=== PATIENT | male | born 1975 | race Caucasian/White ===

== ENCOUNTER 2017-04-19 07:16 | Emergency (ER) | payer OTHER ==
[2017-04-19] MEDS: KETOROLAC 15 MG INJ IM (08:31)
== END 2017-04-19 08:41 | disposition home or self-care (01) ==
LOC: FTE 07:16
DX: M79.604 Pain in right leg (principal); M79.605 Pain in left leg; G47.00 Insomnia, unspecified; F17.210 Nicotine dependence, cigarettes, uncomplicated
CPT/HCPCS: 96372; 99284-25

== ENCOUNTER 2017-05-19 09:57 | Emergency (ER) | payer OTHER ==
[2017-05-19] MEDS ORDERED: SOD CHLORIDE 0.9% 1,000 ML IV (10:34)
[2017-05-19 13:32] LABS: ADD MAN DIFF? NO
[2017-05-19 13:33] LABS: WHITE BLOOD COUNT 5.9 10^3/ul (4.8-10.8)
[2017-05-19 13:33] LABS: ABNORMAL IP MESSAGE 1; BASOPHILS % 0.7 % (0.0-2.0); EOSINOPHILS # 0.2 10^3/ul (0.0-0.5); EOSINOPHILS % 3.9 % (0.0-7.0); HEMATOCRIT 35.5 % (42.0-52.0); HEMOGLOBIN 12.5 g/dl (14.0-18.0); LYMPHOCYTES # 1.7 10^3/ul (0.8-2.9); LYMPHOCYTES % 28.8 % (15.0-51.0); MEAN CORPUSCULAR HEMOGLOBIN 35.4 pg (29.0-33.0); MEAN CORPUSCULAR HGB CONC 35.2 g/dl (32.0-37.0); MEAN CORPUSCULAR VOLUME 100.6 fl (82.0-101.0); MEAN PLATELET VOLUME 10.8 fl (7.4-10.4); MONOCYTE # 0.6 10^3/ul (0.3-0.9); MONOCYTES % 9.9 % (0.0-11.0); NEUTROPHIL # 3.3 10^3/ul (1.6-7.5); NEUTROPHILS % 56.4 % (39.0-77.0); PLATELET COUNT 61 10^3/UL (140-415); POSITIVE DIFF @See below; RED BLOOD COUNT 3.53 10^6/ul (4.70-6.10); RED CELL DISTRIBUTION WIDTH 12.8 % (11.5-14.5)
[2017-05-19 13:53] LABS: ALANINE AMINOTRANSFERASE 37 IU/L (13-69); ALBUMIN 3.5 g/dl (3.3-4.9); ALBUMIN/GLOBULIN RATIO 0.92; ALKALINE PHOSPHATASE 169 IU/L (42-121); ANION GAP 14 (8-16); ASPARTATE AMINO TRANSFERASE 79 IU/L (15-46); BILIRUBIN,INDIRECT 1.7 mg/dl (0-1.1); BILIRUBIN,TOTAL 1.7 mg/dl (0.2-1.3); BLOOD UREA NITROGEN 9 mg/dl (7-20); CALCIUM 8.6 mg/dl (8.4-10.2); CARBON DIOXIDE 26 mmol/L (21-31); CHLORIDE 111 mmol/L (97-110); CREATININE 0.52 mg/dl (0.61-1.24); GLUCOSE 105 mg/dl (70-220); POTASSIUM 4.4 mmol/L (3.5-5.1); SODIUM 147 mmol/L (135-144); TOTAL PROTEIN 7.3 g/dl (6.1-8.1)
== END 2017-05-19 16:00 | disposition home or self-care (01) ==
LOC: E/R 09:57
DX: F10.920 Alcohol use, unspecified with intoxication, uncomplicated (principal); E87.0 Hyperosmolality and hypernatremia; R51 Headache; Z87.891 Personal history of nicotine dependence
CPT/HCPCS: 70450; 80053; 80306; 85025; 99284-25

== ENCOUNTER 2017-08-11 11:19 | Emergency (ER) | payer OTHER | END 2017-08-11 15:05 | disposition home or self-care (01) | LOC: E/R 11:19 | DX: F10.920 Alcohol use, unspecified with intoxication, uncomplicated (principal); R41.82 Altered mental status, unspecified | CPT/HCPCS: 70450; 82962; 99284-25 ==

== ENCOUNTER 2017-10-23 08:28 | Emergency (ER) | payer OTHER ==
[2017-10-23] MEDS: IBUPROFEN 800 MG TAB PO (08:33)
== END 2017-10-23 12:28 | disposition home or self-care (01) ==
LOC: E/R 08:28
DX: M79.605 Pain in left leg (principal); F10.920 Alcohol use, unspecified with intoxication, uncomplicated
CPT/HCPCS: 81025; 99283

== ENCOUNTER 2018-02-06 15:14 | Inpatient (IN) | payer OTHER ==
[2018-02-06 16:37] LABS: ADD MAN DIFF? NO
[2018-02-06 16:41] LABS: ABNORMAL IP MESSAGE 1; BASOPHIL # 0.1 10^3/ul (0.0-0.1); BASOPHILS % 0.5 % (0.0-2.0); EOSINOPHILS # 0.2 10^3/ul (0.0-0.5); EOSINOPHILS % 2.1 % (0.0-7.0); HEMATOCRIT 33.5 % (42.0-52.0); HEMOGLOBIN 11.8 g/dl (14.0-18.0); LYMPHOCYTES % 9.8 % (15.0-51.0); MEAN CORPUSCULAR HEMOGLOBIN 38.6 pg (29.0-33.0); MEAN CORPUSCULAR HGB CONC 35.2 g/dl (32.0-37.0); MEAN CORPUSCULAR VOLUME 109.5 fl (82.0-101.0); MEAN PLATELET VOLUME 11.3 fl (7.4-10.4); MONOCYTE # 0.9 10^3/ul (0.3-0.9); MONOCYTES % 8.9 % (0.0-11.0); NEUTROPHIL # 7.8 10^3/ul (1.6-7.5); NEUTROPHILS % 77.3 % (39.0-77.0); PLATELET COUNT 58 10^3/UL (140-415); POSITIVE DIFF @See below; RED BLOOD COUNT 3.06 10^6/ul (4.70-6.10); RED CELL DISTRIBUTION WIDTH 13.2 % (11.5-14.5)
[2018-02-06 16:41] LABS: WHITE BLOOD COUNT 10.1 10^3/ul (4.8-10.8)
[2018-02-06 16:59] LABS: ALANINE AMINOTRANSFERASE 22 IU/L (13-69); ALBUMIN 2.9 g/dl (3.3-4.9); ALKALINE PHOSPHATASE 308 IU/L (42-121); ANION GAP 8 (5-13); ASPARTATE AMINO TRANSFERASE 103 IU/L (15-46); BILIRUBIN,INDIRECT 3.6 mg/dl (0-1.1); BILIRUBIN,TOTAL 17.7 mg/dl (0.2-1.3); BLOOD UREA NITROGEN 6 mg/dl (7-20); CALCIUM 7.9 mg/dl (8.4-10.2); CARBON DIOXIDE 20 mmol/L (21-31); CHLORIDE 112 mmol/L (97-110); CREATININE 0.59 mg/dl (0.61-1.24); Estimated GFR > 60 mL/min (>60); GLUCOSE 117 mg/dl (70-220); LIPASE 122 U/L (23-300); SODIUM 140 mmol/L (135-144); TOTAL PROTEIN 8.7 g/dl (6.1-8.1)
[2018-02-06 17:01] LABS: POTASSIUM 2.7 mmol/L (3.5-5.1)
[2018-02-06 17:56] LABS: AMMONIA 97 umol/l (9-30)
[2018-02-06] MEDS: POTASSIUM CHLORIDE 100 ML IVPB ×2 (18:05→23:00)
[2018-02-06] MEDS: POTASSIUM CHLORIDE (SR) 20 MEQ TAB PO (18:06)
[2018-02-06 18:10] LABS: ADD UMIC NO; UR ASCORBIC ACID NEGATIVE (NEGATIVE); UR BILIRUBIN (Dip) 2+ mg/dL (NEGATIVE); UR BLOOD (Dip) NEGATIVE (NEGATIVE); UR CLARITY CLEAR (CLEAR); UR COLOR AMBER (YELLOW); UR GLUCOSE (Dip) NEGATIVE (NEGATIVE); UR KETONES (Dip) NEGATIVE (NEGATIVE); UR LEUKOCYTE ESTERASE (Dip) NEGATIVE Leu/ul (NEGATIVE); UR NITRITE (Dip) NEGATIVE (NEGATIVE); UR SPECIFIC GRAVITY (Dip) 1.003 (1.003-1.030); UR TOTAL PROTEIN (Dip) NEGATIVE (NEGATIVE); UR UROBILINOGEN (Dip) 1+ mg/dL (NEGATIVE)
[2018-02-06] MEDS ORDERED: ONDANSETRON 4 MG INJ IV (20:00)
[2018-02-06] MEDS ORDERED: ACETAMINOPHEN 325 MG TAB PO (20:00)
[2018-02-06] MEDS: MAGNESIUM SULFATE 2 GM/50 ML 50 ML IVPB (20:14)
[2018-02-06] MEDS ORDERED: NACL 0.9% 3 ML SYG IV (21:00)
[2018-02-06] MEDS: FAMOTIDINE 20 MG INJ IV (23:45)
[2018-02-06] MEDS: LACTULOSE 30ML CUP PO (23:45)
[2018-02-06] MEDS: FOLIC ACID 1 MG TAB PO (23:45)
[2018-02-06] MEDS: THIAMINE 100 MG TAB PO (23:45)
[2018-02-06] MEDS: CHLORDIAZEPOXIDE 25 MG CAP PO (23:45)
[2018-02-07] MEDS: HEPARIN 5,000 UNIT/0.5 ML VIAL SC (00:32)
[2018-02-07] MEDS: MULTIVITAMINS THERAPEUTIC TAB PO ×2 (00:33→09:00)
[2018-02-07] MEDS: POTASSIUM CHLORIDE 20 MEQ in SOD CHLORIDE 0.9% 100 ML IV ×2 (00:34→02:55)
[2018-02-07] MEDS: POTASSIUM CHLORIDE 100 ML IVPB (02:58)
[2018-02-07] MEDS: LACTULOSE 30ML CUP PO ×3 (06:16→17:01)
[2018-02-07 06:55] LABS: ADD MAN DIFF? NO
[2018-02-07 06:59] LABS: WHITE BLOOD COUNT 6.9 10^3/ul (4.8-10.8)
[2018-02-07 06:59] LABS: ABNORMAL IP MESSAGE 1; BASOPHILS % 0.6 % (0.0-2.0); EOSINOPHILS # 0.2 10^3/ul (0.0-0.5); EOSINOPHILS % 2.2 % (0.0-7.0); HEMATOCRIT 33.3 % (42.0-52.0); HEMOGLOBIN 11.4 g/dl (14.0-18.0); LYMPHOCYTES # 0.7 10^3/ul (0.8-2.9); LYMPHOCYTES % 9.8 % (15.0-51.0); MEAN CORPUSCULAR HEMOGLOBIN 37.7 pg (29.0-33.0); MEAN CORPUSCULAR HGB CONC 34.2 g/dl (32.0-37.0); MEAN CORPUSCULAR VOLUME 110.3 fl (82.0-101.0); MEAN PLATELET VOLUME 11.6 fl (7.4-10.4); MONOCYTE # 0.6 10^3/ul (0.3-0.9); MONOCYTES % 8.7 % (0.0-11.0); NEUTROPHIL # 5.4 10^3/ul (1.6-7.5); NEUTROPHILS % 77.8 % (39.0-77.0); PLATELET COUNT 57 10^3/UL (140-415); POSITIVE DIFF @See below; RED BLOOD COUNT 3.02 10^6/ul (4.70-6.10); RED CELL DISTRIBUTION WIDTH 13.3 % (11.5-14.5)
[2018-02-07 07:16] LABS: IRON 117 ug/dl (35-150)
[2018-02-07 07:21] LABS: ALANINE AMINOTRANSFERASE 29 IU/L (13-69); ALBUMIN 2.6 g/dl (3.3-4.9); ALBUMIN/GLOBULIN RATIO 0.57; ALKALINE PHOSPHATASE 256 IU/L (42-121); ANION GAP 11 (5-13); ASPARTATE AMINO TRANSFERASE 95 IU/L (15-46); BILIRUBIN,INDIRECT 3.6 mg/dl (0-1.1); BILIRUBIN,TOTAL 16.9 mg/dl (0.2-1.3); BLOOD UREA NITROGEN 5 mg/dl (7-20); CALCIUM 7.7 mg/dl (8.4-10.2); CARBON DIOXIDE 19 mmol/L (21-31); CHLORIDE 115 mmol/L (97-110); CREATININE 0.63 mg/dl (0.61-1.24); Estimated GFR > 60 mL/min (>60); GLUCOSE 116 mg/dl (70-220); MAGNESIUM 1.9 mg/dl (1.7-2.5); PHOSPHORUS 3.2 mg/dl (2.5-4.9); POTASSIUM 3.2 mmol/L (3.5-5.1); SODIUM 145 mmol/L (135-144); TOTAL PROTEIN 7.1 g/dl (6.1-8.1)
[2018-02-07 07:26] LABS: % IRON SATURATION 67 % SAT (22-52); TOTAL IRON BINDING CAPACITY 175 ug/dl (241-421)
[2018-02-07 07:50] LABS: THYROID STIMULATING HORMONE 0.925 MIU/L (0.465-4.680)
[2018-02-07 08:25] LABS: FOLATE 13.7 ng/ml (2.8-20.0)
[2018-02-07] MEDS: CHLORDIAZEPOXIDE 25 MG CAP PO ×3 (09:07→20:16)
[2018-02-07] MEDS: FAMOTIDINE 20 MG INJ IV ×2 (09:08→20:16)
[2018-02-07] MEDS: POTASSIUM CHLORIDE (SR) 20 MEQ TAB PO (12:09)
[2018-02-07 15:03] LABS: HEPATITIS B SURFACE ANTIGEN NEGATIVE (NEGATIVE)
[2018-02-07 15:19] LABS: HEPATITIS B SURFACE ANTIBODY NEGATIVE (NEGATIVE)
[2018-02-07 15:20] LABS: HEPATITIS B CORE ANTIBODY NEGATIVE (NEGATIVE); HEPATITIS C VIRAL ANTIBODY NEGATIVE (NEGATIVE)
[2018-02-07] MEDS: SPIRONOLACTONE 50 MG TAB PO (17:01)
[2018-02-08] MEDS: LACTULOSE 30ML CUP PO ×4 (00:38→17:04)
[2018-02-08 07:16] LABS: ADD MAN DIFF? NO
[2018-02-08 07:23] LABS: WHITE BLOOD COUNT 5.8 10^3/ul (4.8-10.8)
[2018-02-08 07:23] LABS: ABNORMAL IP MESSAGE 1; BASOPHILS % 0.5 % (0.0-2.0); EOSINOPHILS # 0.1 10^3/ul (0.0-0.5); EOSINOPHILS % 2.1 % (0.0-7.0); HEMATOCRIT 32.6 % (42.0-52.0); LYMPHOCYTES # 0.6 10^3/ul (0.8-2.9); LYMPHOCYTES % 10.5 % (15.0-51.0); MEAN CORPUSCULAR HEMOGLOBIN 37.4 pg (29.0-33.0); MEAN CORPUSCULAR HGB CONC 33.7 g/dl (32.0-37.0); MEAN CORPUSCULAR VOLUME 110.9 fl (82.0-101.0); MONOCYTE # 0.7 10^3/ul (0.3-0.9); MONOCYTES % 11.9 % (0.0-11.0); NEUTROPHIL # 4.3 10^3/ul (1.6-7.5); NEUTROPHILS % 74.5 % (39.0-77.0); POSITIVE DIFF @See below; RED BLOOD COUNT 2.94 10^6/ul (4.70-6.10); RED CELL DISTRIBUTION WIDTH 13.6 % (11.5-14.5)
[2018-02-08 07:27] LABS: PLATELET COUNT 42 10^3/UL (140-415)
[2018-02-08 07:42] LABS: ALANINE AMINOTRANSFERASE 25 IU/L (13-69); ALBUMIN 2.6 g/dl (3.3-4.9); ALKALINE PHOSPHATASE 296 IU/L (42-121); ASPARTATE AMINO TRANSFERASE 95 IU/L (15-46); BILIRUBIN,INDIRECT 3.6 mg/dl (0-1.1); BILIRUBIN,TOTAL 16.5 mg/dl (0.2-1.3); TOTAL PROTEIN 7.4 g/dl (6.1-8.1)
[2018-02-08] MEDS: SPIRONOLACTONE 50 MG TAB PO (09:46)
[2018-02-08] MEDS: CHLORDIAZEPOXIDE 25 MG CAP PO ×3 (09:46→21:41)
[2018-02-08] MEDS: FAMOTIDINE 20 MG INJ IV ×2 (09:46→21:40)
[2018-02-08] MEDS: MULTIVITAMINS THERAPEUTIC TAB PO (09:46)
[2018-02-08 10:56] LABS: AMMONIA 116 umol/l (9-30)
[2018-02-08 11:13] LABS: INR 2.58; PROTIME 28.4 Sec (11.9-14.9); PT RATIO 2.2
[2018-02-08] MEDS: POTASSIUM CHLORIDE 100 ML IVPB ×2 (17:02→19:40)
[2018-02-08] MEDS: RIFAXIMIN 550 MG TAB PO (21:40)
[2018-02-09] MEDS: LACTULOSE 30ML CUP PO ×2 (06:35)
[2018-02-09 06:44] LABS: ADD MAN DIFF? NO
[2018-02-09 06:50] LABS: ABNORMAL IP MESSAGE 1; BASOPHILS % 0.5 % (0.0-2.0); EOSINOPHILS # 0.1 10^3/ul (0.0-0.5); HEMATOCRIT 35.5 % (42.0-52.0); HEMOGLOBIN 11.8 g/dl (14.0-18.0); LYMPHOCYTES # 0.7 10^3/ul (0.8-2.9); LYMPHOCYTES % 8.7 % (15.0-51.0); MEAN CORPUSCULAR HEMOGLOBIN 37.6 pg (29.0-33.0); MEAN CORPUSCULAR HGB CONC 33.2 g/dl (32.0-37.0); MEAN CORPUSCULAR VOLUME 113.1 fl (82.0-101.0); MEAN PLATELET VOLUME 12.2 fl (7.4-10.4); MONOCYTE # 0.5 10^3/ul (0.3-0.9); MONOCYTES % 6.9 % (0.0-11.0); NEUTROPHIL # 6.5 10^3/ul (1.6-7.5); NEUTROPHILS % 82.3 % (39.0-77.0); POSITIVE DIFF @See below; RED BLOOD COUNT 3.14 10^6/ul (4.70-6.10); RED CELL DISTRIBUTION WIDTH 13.7 % (11.5-14.5)
[2018-02-09 06:50] LABS: WHITE BLOOD COUNT 7.9 10^3/ul (4.8-10.8)
[2018-02-09 07:01] LABS: PLATELET COUNT 46 10^3/UL (140-415)
[2018-02-09 07:27] LABS: ALANINE AMINOTRANSFERASE 23 IU/L (13-69); ALBUMIN 2.5 g/dl (3.3-4.9); ALKALINE PHOSPHATASE 276 IU/L (42-121); ASPARTATE AMINO TRANSFERASE 96 IU/L (15-46); BILIRUBIN,INDIRECT 3.5 mg/dl (0-1.1); BILIRUBIN,TOTAL 15.1 mg/dl (0.2-1.3); TOTAL PROTEIN 7.6 g/dl (6.1-8.1)
[2018-02-09 07:30] LABS: AMMONIA 115 umol/l (9-30)
[2018-02-09] MEDS: FAMOTIDINE 20 MG INJ IV ×2 (08:49→20:12)
[2018-02-09] MEDS: SPIRONOLACTONE 50 MG TAB PO (09:00)
[2018-02-09] MEDS: METHYLPREDNISOLONE 4 MG TAB PO (09:00)
[2018-02-09] MEDS: MULTIVITAMINS THERAPEUTIC TAB PO (09:00)
[2018-02-09] MEDS: CHLORDIAZEPOXIDE 25 MG CAP PO ×3 (09:00→20:15)
[2018-02-09] MEDS: RIFAXIMIN 550 MG TAB PO ×2 (09:00→20:15)
[2018-02-09] MEDS: METHYLPREDNISOLONE 40 MG INJ IV (11:19)
[2018-02-09] MEDS: SOD CHLORIDE 0.9% 1,000 ML IV ×2 (11:20→21:39)
[2018-02-09] MEDS: LACTULOSE ENEMA 1,000 ML BTL PR ×2 (13:03→18:04)
[2018-02-09 19:58] LABS: Arterial Base Excess -7.4 mmol/L (-3.0-3); Arterial Blood Gas Oxygen Sat 97.6 mmHG (95.0-98.0); Arterial Fraction of Oxyhgb 95.4 % (93.0-99.0); Arterial MetHb 0.3 % (0.0-1.5); Arterial Total Hemglobin 14.1 g/dl (12.0-18.0); Arterial pCO2 36.5 mmhg (35-45); MODE MASK - SIMPLE; Site Right Brachial
[2018-02-09] MEDS ORDERED: NALOXONE (0.4 MG/ML) INJ (21:11)
[2018-02-09 21:23] LABS: AADO2 Arterial 278.6 mmHg (7.0-24.0); Allen Test ACCEPTAB; Arterial Base Excess -9.3 mmol/L (-3.0-3); Arterial Blood Gas Oxygen Sat 97.2 mmHG (95.0-98.0); Arterial COHb 1.8 % (0.0-3.0); Arterial Fraction of Oxyhgb 95.2 % (93.0-99.0); Arterial MetHb 0.3 % (0.0-1.5); Arterial Total Hemglobin 14.3 g/dl (12.0-18.0); Arterial pCO2 43.9 mmhg (35-45); MODE MASK - SIMPLE; Site Right Radial
[2018-02-09] MEDS ORDERED: RIFAXIMIN 550 MG TAB PO (21:30)
[2018-02-09] MEDS: NALOXONE (0.4 MG/ML) INJ IV (21:38)
[2018-02-09] MEDS: LACTULOSE 30ML CUP GTB (23:10)
[2018-02-09 23:59] LABS: AADO2 Arterial 177.8 mmHg (7.0-24.0); Allen Test ACCEPTAB; Arterial Base Excess -16.4 mmol/L (-3.0-3); Arterial Blood Gas Oxygen Sat 93.2 mmHG (95.0-98.0); Arterial COHb 1.7 % (0.0-3.0); Arterial Fraction of Oxyhgb 91.2 % (93.0-99.0); Arterial HCO3 17.9 mmol/L (22.0-26.0); Arterial MetHb 0.4 % (0.0-1.5); Arterial Total Hemglobin 15.1 g/dl (12.0-18.0); Arterial pCO2 87.9 mmhg (35-45); MODE MASK - SIMPLE; Site Right Radial
[2018-02-10] MEDS: LACTULOSE ENEMA 1,000 ML BTL PR ×2 (00:49→05:13)
[2018-02-10 02:13] LABS: Allen Test ACCEPTAB; Arterial Base Excess -11.4 mmol/L (-3.0-3); Arterial Blood Gas Oxygen Sat 99.7 mmHG (95.0-98.0); Arterial COHb 1.3 % (0.0-3.0); Arterial HCO3 15.6 mmol/L (22.0-26.0); Arterial MetHb 0.4 % (0.0-1.5); Arterial Total Hemglobin 14.8 g/dl (12.0-18.0); Arterial pCO2 39.2 mmhg (35-45); MODE VENT - AC; Site Right Radial
[2018-02-10] MEDS: MIDAZOLAM (DRIP) 50 mg/50 mL 50 ML IV ×3 (02:15→18:30)
[2018-02-10] MEDS: FENTAnyl (DRIP) 1000 mcg/100mL 100 ML IV ×2 (05:08→21:49)
[2018-02-10] MEDS: SOD CHLORIDE 0.9% 500 ML IV (05:51)
[2018-02-10 06:24] LABS: WHITE BLOOD COUNT 26.6 10^3/ul (4.8-10.8)
[2018-02-10 06:24] LABS: ABNORMAL IP MESSAGE 1; HEMATOCRIT 39.6 % (42.0-52.0); HEMOGLOBIN 12.9 g/dl (14.0-18.0); MEAN CORPUSCULAR HEMOGLOBIN 37.9 pg (29.0-33.0); MEAN CORPUSCULAR HGB CONC 32.6 g/dl (32.0-37.0); MEAN CORPUSCULAR VOLUME 116.5 fl (82.0-101.0); MEAN PLATELET VOLUME 11.5 fl (7.4-10.4); PLATELET COUNT 85 10^3/UL (140-415); POSITIVE DIFF @See below; RED CELL DISTRIBUTION WIDTH 13.9 % (11.5-14.5)
[2018-02-10 06:31] LABS: ADD MAN DIFF? YES
[2018-02-10 06:41] LABS: AMMONIA 127 umol/l (9-30)
[2018-02-10 06:44] LABS: INR 3.08; PROTIME 32.7 Sec (11.9-14.9); PT RATIO 2.6
[2018-02-10 06:47] LABS: ALANINE AMINOTRANSFERASE 13 IU/L (13-69); ALBUMIN 2.8 g/dl (3.3-4.9); ALKALINE PHOSPHATASE 261 IU/L (42-121); ASPARTATE AMINO TRANSFERASE 118 IU/L (15-46); BILIRUBIN,INDIRECT 3.8 mg/dl (0-1.1); BILIRUBIN,TOTAL 19.3 mg/dl (0.2-1.3); TOTAL PROTEIN 8.5 g/dl (6.1-8.1)
[2018-02-10] MEDS: DEXTROSE 5%-0.45% NACL 1,000 ML IV ×2 (06:53→15:18)
[2018-02-10 07:10] LABS: ANION GAP 16 (5-13); BLOOD UREA NITROGEN 16 mg/dl (7-20); CALCIUM 8.6 mg/dl (8.4-10.2); CARBON DIOXIDE 13 mmol/L (21-31); CHLORIDE 118 mmol/L (97-110); CREATININE 1.28 mg/dl (0.61-1.24); Estimated GFR > 60 mL/min (>60); GLUCOSE 176 mg/dl (70-220); POTASSIUM 3.7 mmol/L (3.5-5.1); SODIUM 147 mmol/L (135-144)
[2018-02-10 07:35] LABS: ANISOCYTOSIS 2+ (0-0); BAND NEUTROPHILS #M 2.3 10^3/ul (0.0-0.6); BAND NEUTROPHILS % (M) 9 % (0-4); BURR CELLS 1+ (0-0); EOSINOPHILS % (M) 1 % (0-7); GIANT THROMBO% (M) 1 % (0-0); MONOCYTE #M 0.5 10^3/ul (0.3-0.9); MONOCYTES % (M) 2 % (0-11); PLATELET ESTIMATE DECREASED; POIKILOCYTOSIS 2+ (0-0); POLYCHROMASIA 1+ (0-0); PROMYELOCYTES #M 0.2 10^3/ul (0-0); PROMYELOCYTES % (M) 1 % (0-0); SEG NEUT #M 23.8 10^3/ul (1.6-7.5); SEGMENTED NEUTROPHILS (M) % 87 % (39-77); SMUDGE%M 7 % (0-0)
[2018-02-10] MEDS: RIFAXIMIN 550 MG TAB PO (09:00)
[2018-02-10] MEDS: FAMOTIDINE 20 MG INJ IV ×2 (09:37→20:55)
[2018-02-10] MEDS: METHYLPREDNISOLONE 40 MG INJ IV (09:37)
[2018-02-10] MEDS: SPIRONOLACTONE 50 MG TAB PO (09:38)
[2018-02-10] MEDS: CHLORDIAZEPOXIDE 25 MG CAP PO ×3 (09:38→20:55)
[2018-02-10] MEDS: MULTIVITAMINS THERAPEUTIC TAB PO (09:38)
[2018-02-10 10:28] LABS: LACTIC ACID 6.6 mmol/L (0.5-2.0)
[2018-02-10] MEDS: LEVOFLOXACIN 500MG/D5W (PMX) 100 ML IVPB (11:00)
[2018-02-10] MEDS: LACTULOSE 30ML CUP NGT ×7 (12:06→23:00)
[2018-02-10 12:31] LABS: LACTIC ACID 4.1 mmol/L (0.5-2.0)
[2018-02-10] MEDS: metroNIDAZOLE 500 MG/NS (PMX) 100 ML IVPB ×2 (13:54→21:47)
[2018-02-10] MEDS: LIDOCAINE 1% (MPF) 5 ML VIAL SC (17:00)
[2018-02-10 18:59] LABS: LACTIC ACID 2.1 mmol/L (0.5-2.0)
[2018-02-11] MEDS: RIFAXIMIN 550 MG TAB PO ×3 (00:13→20:18)
[2018-02-11] MEDS: DEXTROSE 5%-0.45% NACL 1,000 ML IV (00:13)
[2018-02-11 01:23] LABS: LACTIC ACID 1.8 mmol/L (0.5-2.0)
[2018-02-11 05:17] LABS: ADD MAN DIFF? NO
[2018-02-11 05:24] LABS: WHITE BLOOD COUNT 23.8 10^3/ul (4.8-10.8)
[2018-02-11 05:24] LABS: ABNORMAL IP MESSAGE 1; BASOPHILS % 0.1 % (0.0-2.0); EOSINOPHILS % 0.2 % (0.0-7.0); HEMOGLOBIN 11.2 g/dl (14.0-18.0); LYMPHOCYTES # 0.7 10^3/ul (0.8-2.9); LYMPHOCYTES % 3.1 % (15.0-51.0); MEAN CORPUSCULAR HEMOGLOBIN 38.5 pg (29.0-33.0); MEAN CORPUSCULAR HGB CONC 33.9 g/dl (32.0-37.0); MEAN CORPUSCULAR VOLUME 113.4 fl (82.0-101.0); MEAN PLATELET VOLUME 11.5 fl (7.4-10.4); MONOCYTE # 1.6 10^3/ul (0.3-0.9); MONOCYTES % 6.7 % (0.0-11.0); NEUTROPHILS % 88.2 % (39.0-77.0); PLATELET COUNT 69 10^3/UL (140-415); POSITIVE DIFF @See below; RED BLOOD COUNT 2.91 10^6/ul (4.70-6.10); RED CELL DISTRIBUTION WIDTH 14.5 % (11.5-14.5)
[2018-02-11] MEDS: LACTULOSE 30ML CUP NGT ×3 (05:30→17:22)
[2018-02-11] MEDS: metroNIDAZOLE 500 MG/NS (PMX) 100 ML IVPB ×2 (05:30→13:18)
[2018-02-11] MEDS: MIDAZOLAM (DRIP) 50 mg/50 mL 50 ML IV (05:31)
[2018-02-11 05:43] LABS: ALANINE AMINOTRANSFERASE 28 IU/L (13-69); ALBUMIN 2.3 g/dl (3.3-4.9); ALKALINE PHOSPHATASE 214 IU/L (42-121); ASPARTATE AMINO TRANSFERASE 70 IU/L (15-46); BILIRUBIN,INDIRECT 3.4 mg/dl (0-1.1); BILIRUBIN,TOTAL 18.7 mg/dl (0.2-1.3); TOTAL PROTEIN 6.6 g/dl (6.1-8.1)
[2018-02-11 05:49] LABS: ANION GAP 8 (5-13); BLOOD UREA NITROGEN 31 mg/dl (7-20); CALCIUM 8.4 mg/dl (8.4-10.2); CARBON DIOXIDE 17 mmol/L (21-31); CHLORIDE 122 mmol/L (97-110); CREATININE 1.64 mg/dl (0.61-1.24); Estimated GFR 46 mL/min (>60); GLUCOSE 130 mg/dl (70-220); POTASSIUM 3.3 mmol/L (3.5-5.1); SODIUM 147 mmol/L (135-144)
[2018-02-11 05:54] LABS: LACTIC ACID 1.8 mmol/L (0.5-2.0)
[2018-02-11 07:26] LABS: AADO2 Arterial 92.9 mmHg (7.0-24.0); Allen Test ACCEPTAB; Arterial Base Excess -9.1 mmol/L (-3.0-3); Arterial Blood Gas Oxygen Sat 96.2 mmHG (95.0-98.0); Arterial COHb 0.9 % (0.0-3.0); Arterial Fraction of Oxyhgb 95.1 % (93.0-99.0); Arterial HCO3 15.3 mmol/L (22.0-26.0); Arterial MetHb 0.2 % (0.0-1.5); Arterial Total Hemglobin 12.3 g/dl (12.0-18.0); Arterial pCO2 28.7 mmhg (35-45); MODE VENT - AC; Site Right Radial
[2018-02-11] MEDS: FAMOTIDINE 20 MG INJ IV ×2 (10:42→20:18)
[2018-02-11] MEDS: LEVOFLOXACIN 500MG/D5W (PMX) 100 ML IVPB (10:42)
[2018-02-11] MEDS: SPIRONOLACTONE 50 MG TAB PO (10:42)
[2018-02-11] MEDS: POTASSIUM CHLORIDE 20 MEQ POWDER FOR ORAL SOLN NGT (10:42)
[2018-02-11] MEDS: METHYLPREDNISOLONE 40 MG INJ IV (10:42)
[2018-02-11] MEDS: MULTIVITAMINS THERAPEUTIC TAB PO (10:42)
[2018-02-11 11:17] LABS: LACTIC ACID 1.3 mmol/L (0.5-2.0)
[2018-02-11] MEDS: DEXTROSE 5% 1,000 ML IV (11:17)
[2018-02-11] MEDS: CHLORDIAZEPOXIDE 25 MG CAP PO ×3 (11:17→20:18)
[2018-02-11 11:18] LABS: AMMONIA 126 umol/l (9-30)
[2018-02-11 13:10] LABS: ADD UMIC YES; UR ASCORBIC ACID NEGATIVE (NEGATIVE); UR BACTERIA FEW /HPF (NONE SEEN); UR BILIRUBIN (Dip) 2+ mg/dL (NEGATIVE); UR BLOOD (Dip) 2+ mg/dL (NEGATIVE); UR CLARITY SLIGHTLY CLOUDY (CLEAR); UR COLOR AMBER (YELLOW); UR GLUCOSE (Dip) NEGATIVE (NEGATIVE); UR KETONES (Dip) NEGATIVE (NEGATIVE); UR LEUKOCYTE ESTERASE (Dip) NEGATIVE Leu/ul (NEGATIVE); UR MUCUS FEW /HPF (NONE SEEN); UR NITRITE (Dip) NEGATIVE (NEGATIVE); UR RBC 10 /HPF (0-5); UR SPECIFIC GRAVITY (Dip) 1.023 (1.003-1.030); UR TOTAL PROTEIN (Dip) NEGATIVE (NEGATIVE); UR UROBILINOGEN (Dip) 2+ mg/dL (NEGATIVE); UR WBC 5 /HPF (0-5)
[2018-02-11] MEDS: DEXMEDETOMIDINE HCL 200 MCG in SOD CHLORIDE 0.9% 48 ML IV (13:13)
[2018-02-11 13:30] LABS: CREATININE,URINE RANDOM 151.22 mg/dl (20-370)
[2018-02-11 13:32] LABS: SODIUM,URINE RANDOM < 13 mmol/L (30-90)
[2018-02-11 15:33] LABS: ANION GAP 5 (5-13); BLOOD UREA NITROGEN 33 mg/dl (7-20); CALCIUM 8.3 mg/dl (8.4-10.2); CARBON DIOXIDE 18 mmol/L (21-31); CHLORIDE 124 mmol/L (97-110); Estimated GFR 60 mL/min (>60); GLUCOSE 146 mg/dl (70-220); SODIUM 147 mmol/L (135-144)
[2018-02-11 15:35] LABS: POTASSIUM 3.6 mmol/L (3.5-5.1)
[2018-02-11 19:17] LABS: LACTIC ACID 1.3 mmol/L (0.5-2.0)
[2018-02-11] MEDS: POTASSIUM CHLORIDE 100 ML IVPB ×2 (20:18→22:04)
[2018-02-12] MEDS: metroNIDAZOLE 500 MG/NS (PMX) 100 ML IVPB ×4 (00:02→21:44)
[2018-02-12] MEDS: LACTULOSE 30ML CUP NGT ×4 (00:03→17:31)
[2018-02-12 05:14] LABS: ADD MAN DIFF? NO
[2018-02-12 05:17] LABS: ABNORMAL IP MESSAGE 1; BASOPHILS % 0.2 % (0.0-2.0); HEMATOCRIT 34.7 % (42.0-52.0); HEMOGLOBIN 11.5 g/dl (14.0-18.0); LYMPHOCYTES # 0.7 10^3/ul (0.8-2.9); MEAN CORPUSCULAR HEMOGLOBIN 37.5 pg (29.0-33.0); MEAN CORPUSCULAR HGB CONC 33.1 g/dl (32.0-37.0); MEAN PLATELET VOLUME 11.4 fl (7.4-10.4); MONOCYTE # 1.3 10^3/ul (0.3-0.9); MONOCYTES % 7.3 % (0.0-11.0); NEUTROPHIL # 15.2 10^3/ul (1.6-7.5); NEUTROPHILS % 87.4 % (39.0-77.0); PLATELET COUNT 60 10^3/UL (140-415); POSITIVE DIFF @See below; RED BLOOD COUNT 3.07 10^6/ul (4.70-6.10); RED CELL DISTRIBUTION WIDTH 14.7 % (11.5-14.5)
[2018-02-12 05:17] LABS: WHITE BLOOD COUNT 17.4 10^3/ul (4.8-10.8)
[2018-02-12 05:36] LABS: INR 2.67; PROTIME 29.2 Sec (11.9-14.9); PT RATIO 2.3
[2018-02-12 05:51] LABS: ANION GAP 4 (5-13); BLOOD UREA NITROGEN 29 mg/dl (7-20); CALCIUM 8.7 mg/dl (8.4-10.2); CARBON DIOXIDE 19 mmol/L (21-31); CHLORIDE 126 mmol/L (97-110); CREATININE 1.08 mg/dl (0.61-1.24); Estimated GFR > 60 mL/min (>60); GLUCOSE 144 mg/dl (70-220); POTASSIUM 3.6 mmol/L (3.5-5.1); SODIUM 149 mmol/L (135-144)
[2018-02-12] MEDS: POTASSIUM CHLORIDE 20 MEQ POWDER FOR ORAL SOLN NGT (08:42)
[2018-02-12] MEDS: MULTIVITAMINS THERAPEUTIC TAB PO (08:43)
[2018-02-12] MEDS: FAMOTIDINE 20 MG INJ IV ×2 (08:43→21:44)
[2018-02-12] MEDS: FUROSEMIDE 20 MG INJ IV (08:43)
[2018-02-12] MEDS: SPIRONOLACTONE 50 MG TAB PO (08:43)
[2018-02-12] MEDS: CHLORDIAZEPOXIDE 25 MG CAP PO (08:43)
[2018-02-12] MEDS: METHYLPREDNISOLONE 40 MG INJ IV (08:43)
[2018-02-12] MEDS: DEXTROSE 5% 1,000 ML IV ×2 (10:38→21:44)
[2018-02-12] MEDS: RIFAXIMIN 550 MG TAB PO ×2 (10:38→21:44)
[2018-02-12] MEDS: LEVOFLOXACIN 500MG/D5W (PMX) 100 ML IVPB (10:44)
[2018-02-12 16:52] LABS: CREATININE, RANDOM URINE 141 mg/dL (20-320); MICROALBUMIN/CREATININE RATIO 7 (<30)
[2018-02-13] MEDS: LACTULOSE 30ML CUP NGT ×5 (00:13→23:29)
[2018-02-13 05:15] LABS: ADD MAN DIFF? NO
[2018-02-13 05:22] LABS: WHITE BLOOD COUNT 18.7 10^3/ul (4.8-10.8)
[2018-02-13 05:22] LABS: ABNORMAL IP MESSAGE 1; BASOPHILS % 0.2 % (0.0-2.0); EOSINOPHILS % 0.1 % (0.0-7.0); HEMATOCRIT 34.1 % (42.0-52.0); HEMOGLOBIN 11.4 g/dl (14.0-18.0); LYMPHOCYTES # 0.9 10^3/ul (0.8-2.9); LYMPHOCYTES % 4.8 % (15.0-51.0); MEAN CORPUSCULAR HEMOGLOBIN 37.3 pg (29.0-33.0); MEAN CORPUSCULAR HGB CONC 33.4 g/dl (32.0-37.0); MEAN CORPUSCULAR VOLUME 111.4 fl (82.0-101.0); MEAN PLATELET VOLUME 11.7 fl (7.4-10.4); MONOCYTES % 10.7 % (0.0-11.0); NEUTROPHIL # 15.4 10^3/ul (1.6-7.5); NEUTROPHILS % 82.1 % (39.0-77.0); PLATELET COUNT 63 10^3/UL (140-415); POSITIVE DIFF @See below; RED BLOOD COUNT 3.06 10^6/ul (4.70-6.10); RED CELL DISTRIBUTION WIDTH 14.6 % (11.5-14.5)
[2018-02-13 05:50] LABS: ALANINE AMINOTRANSFERASE 39 IU/L (13-69); ALBUMIN 2.4 g/dl (3.3-4.9); ALKALINE PHOSPHATASE 239 IU/L (42-121); ASPARTATE AMINO TRANSFERASE 95 IU/L (15-46); BILIRUBIN,INDIRECT 3.4 mg/dl (0-1.1); TOTAL PROTEIN 7.2 g/dl (6.1-8.1)
[2018-02-13] MEDS: metroNIDAZOLE 500 MG/NS (PMX) 100 ML IVPB ×3 (05:54→20:38)
[2018-02-13 05:57] LABS: MAGNESIUM 2.3 mg/dl (1.7-2.5)
[2018-02-13 05:58] LABS: ANION GAP 6 (5-13); BLOOD UREA NITROGEN 26 mg/dl (7-20); CARBON DIOXIDE 20 mmol/L (21-31); CHLORIDE 124 mmol/L (97-110); CREATININE 1.03 mg/dl (0.61-1.24); Estimated GFR > 60 mL/min (>60); GLUCOSE 114 mg/dl (70-220); POTASSIUM 3.4 mmol/L (3.5-5.1); SODIUM 150 mmol/L (135-144)
[2018-02-13] MEDS: FAMOTIDINE 20 MG INJ IV ×2 (09:00→20:37)
[2018-02-13] MEDS: MULTIVITAMINS THERAPEUTIC TAB PO (09:16)
[2018-02-13] MEDS: RIFAXIMIN 550 MG TAB PO ×2 (09:16→20:37)
[2018-02-13] MEDS: POTASSIUM CHLORIDE 20 MEQ POWDER FOR ORAL SOLN NGT (09:16)
[2018-02-13] MEDS: METHYLPREDNISOLONE 40 MG INJ IV (09:17)
[2018-02-13 10:15] LABS: AMMONIA 76 umol/l (9-30)
[2018-02-13] MEDS: METOLAZONE 5 MG TAB PO (10:26)
[2018-02-13] MEDS: PROPOFOL 100 ML IV ×3 (10:29→23:54)
[2018-02-13] MEDS: LEVOFLOXACIN 500MG/D5W (PMX) 100 ML IVPB (13:04)
[2018-02-13 14:05] LABS: ANION GAP 7 (5-13); BLOOD UREA NITROGEN 25 mg/dl (7-20); CALCIUM 9.1 mg/dl (8.4-10.2); CARBON DIOXIDE 20 mmol/L (21-31); CHLORIDE 122 mmol/L (97-110); CREATININE 0.96 mg/dl (0.61-1.24); Estimated GFR > 60 mL/min (>60); GLUCOSE 149 mg/dl (70-220); POTASSIUM 3.7 mmol/L (3.5-5.1); SODIUM 149 mmol/L (135-144)
[2018-02-13] MEDS: hydrALAzine 20 MG INJ IV (20:39)
[2018-02-14 05:48] LABS: ADD MAN DIFF? NO
[2018-02-14] MEDS: metroNIDAZOLE 500 MG/NS (PMX) 100 ML IVPB ×3 (05:48→22:12)
[2018-02-14] MEDS: LACTULOSE 30ML CUP NGT ×4 (05:48→23:53)
[2018-02-14 06:01] LABS: ABNORMAL IP MESSAGE 1; BASOPHILS % 0.2 % (0.0-2.0); HEMATOCRIT 34.4 % (42.0-52.0); HEMOGLOBIN 11.3 g/dl (14.0-18.0); LYMPHOCYTES # 0.7 10^3/ul (0.8-2.9); LYMPHOCYTES % 4.9 % (15.0-51.0); MEAN CORPUSCULAR HEMOGLOBIN 37.4 pg (29.0-33.0); MEAN CORPUSCULAR HGB CONC 32.8 g/dl (32.0-37.0); MEAN CORPUSCULAR VOLUME 113.9 fl (82.0-101.0); MEAN PLATELET VOLUME 12.1 fl (7.4-10.4); MONOCYTE # 1.6 10^3/ul (0.3-0.9); MONOCYTES % 11.5 % (0.0-11.0); NEUTROPHIL # 10.9 10^3/ul (1.6-7.5); NEUTROPHILS % 80.7 % (39.0-77.0); POSITIVE DIFF @See below; RED BLOOD COUNT 3.02 10^6/ul (4.70-6.10); RED CELL DISTRIBUTION WIDTH 14.3 % (11.5-14.5)
[2018-02-14 06:01] LABS: WHITE BLOOD COUNT 13.5 10^3/ul (4.8-10.8)
[2018-02-14 06:14] LABS: PLATELET COUNT 48 10^3/UL (140-415)
[2018-02-14 06:26] LABS: ANION GAP 6 (5-13); BLOOD UREA NITROGEN 27 mg/dl (7-20); CALCIUM 9.3 mg/dl (8.4-10.2); CARBON DIOXIDE 20 mmol/L (21-31); CHLORIDE 119 mmol/L (97-110); CREATININE 0.94 mg/dl (0.61-1.24); Estimated GFR > 60 mL/min (>60); GLUCOSE 149 mg/dl (70-220); POTASSIUM 3.1 mmol/L (3.5-5.1); SODIUM 145 mmol/L (135-144)
[2018-02-14 06:27] LABS: PHOSPHORUS 4.8 mg/dl (2.5-4.9)
[2018-02-14 06:27] LABS: MAGNESIUM 2.6 mg/dl (1.7-2.5)
[2018-02-14] MEDS: POTASSIUM CHLORIDE 50 ML IVPB ×3 (07:16→11:30)
[2018-02-14] MEDS: FAMOTIDINE 20 MG INJ IV ×2 (09:00→20:29)
[2018-02-14] MEDS: METHYLPREDNISOLONE 40 MG INJ IV (09:07)
[2018-02-14] MEDS: FUROSEMIDE 20 MG INJ IV (09:07)
[2018-02-14] MEDS: MULTIVITAMINS THERAPEUTIC TAB PO (09:08)
[2018-02-14] MEDS: RIFAXIMIN 550 MG TAB PO ×2 (09:08→20:29)
[2018-02-14] MEDS: SPIRONOLACTONE 25 MG TAB NGT (09:08)
[2018-02-14] MEDS: LEVOFLOXACIN 500MG/D5W (PMX) 100 ML IVPB (14:25)
[2018-02-14] MEDS: PROPOFOL 100 ML IV (22:30)
[2018-02-15 05:11] LABS: WHITE BLOOD COUNT 23.5 10^3/ul (4.8-10.8)
[2018-02-15 05:11] LABS: ABNORMAL IP MESSAGE 1; HEMATOCRIT 34.8 % (42.0-52.0); HEMOGLOBIN 11.8 g/dl (14.0-18.0); MEAN CORPUSCULAR HEMOGLOBIN 37.9 pg (29.0-33.0); MEAN CORPUSCULAR HGB CONC 33.9 g/dl (32.0-37.0); MEAN CORPUSCULAR VOLUME 111.9 fl (82.0-101.0); MEAN PLATELET VOLUME 12.3 fl (7.4-10.4); NUCLEATED RED BLOOD CELLS% 0.1 /100WBC (0.0-0.0); PLATELET COUNT 53 10^3/UL (140-415); POSITIVE DIFF @See below; RED BLOOD COUNT 3.11 10^6/ul (4.70-6.10); RED CELL DISTRIBUTION WIDTH 14.6 % (11.5-14.5)
[2018-02-15 05:29] LABS: ANION GAP 9 (5-13); BLOOD UREA NITROGEN 36 mg/dl (7-20); CALCIUM 9.2 mg/dl (8.4-10.2); CARBON DIOXIDE 21 mmol/L (21-31); CHLORIDE 113 mmol/L (97-110); CREATININE 1.18 mg/dl (0.61-1.24); Estimated GFR > 60 mL/min (>60); GLUCOSE 126 mg/dl (70-220); MAGNESIUM 2.6 mg/dl (1.7-2.5); PHOSPHORUS 5.2 mg/dl (2.5-4.9); POTASSIUM 3.2 mmol/L (3.5-5.1); SODIUM 143 mmol/L (135-144)
[2018-02-15 05:33] LABS: ADD MAN DIFF? YES
[2018-02-15] MEDS: metroNIDAZOLE 500 MG/NS (PMX) 100 ML IVPB ×3 (05:49→22:12)
[2018-02-15] MEDS: LACTULOSE 30ML CUP NGT ×4 (05:50→20:47)
[2018-02-15] MEDS: POTASSIUM CHLORIDE 50 ML IVPB ×3 (06:33→12:27)
[2018-02-15 07:07] LABS: ANISOCYTOSIS 1+ (0-0); BAND NEUTROPHILS #M 1.4 10^3/ul (0.0-0.6); BAND NEUTROPHILS % (M) 6 % (0-4); BURR CELLS 3+ (0-0); LYMPHOCYTES #M 0.4 10^3/ul (0.8-2.9); LYMPHOCYTES % (M) 2 % (15-51); METAMYELOCYTES #M 0.4 10^3/ul (0.0-0.0); METAMYELOCYTES %M 2 % (0-0); MONOCYTE #M 3.9 10^3/ul (0.3-0.9); MONOCYTES % (M) 17 % (0-11); MYELOCYTES #M 0.4 10^3/ul (0.0-0.0); MYELOCYTES % (M) 2 % (0-0); PLATELET ESTIMATE SIG DECREASED; POIKILOCYTOSIS 3+ (0-0); POLYCHROMASIA 1+ (0-0); PROMYELOCYTES #M 0.2 10^3/ul (0-0); PROMYELOCYTES % (M) 1 % (0-0); SEG NEUT #M 16.8 10^3/ul (1.6-7.5); SEGMENTED NEUTROPHILS (M) % 70 % (39-77); SMUDGE%M 1 % (0-0); SPHEROCYTES 1+ (0-0)
[2018-02-15] MEDS: RIFAXIMIN 550 MG TAB PO ×2 (11:12→20:46)
[2018-02-15] MEDS: POTASSIUM CHLORIDE 20 MEQ POWDER FOR ORAL SOLN NGT (11:12)
[2018-02-15] MEDS: MULTIVITAMINS THERAPEUTIC TAB PO (11:12)
[2018-02-15] MEDS: LEVOFLOXACIN 500MG/D5W (PMX) 100 ML IVPB (11:12)
[2018-02-15] MEDS: METHYLPREDNISOLONE 40 MG INJ IV (11:13)
[2018-02-15] MEDS: FAMOTIDINE 20 MG INJ IV ×2 (11:13→20:46)
[2018-02-15] MEDS: ACETAMINOPHEN 650MG/20.3ML CUP NGT (12:25)
[2018-02-16] MEDS: LACTULOSE 30ML CUP NGT ×6 (01:25→20:20)
[2018-02-16 04:53] LABS: ADD MAN DIFF? NO
[2018-02-16 05:04] LABS: ABNORMAL IP MESSAGE 1; BASOPHIL # 0.1 10^3/ul (0.0-0.1); BASOPHILS % 0.3 % (0.0-2.0); HEMATOCRIT 34.3 % (42.0-52.0); HEMOGLOBIN 11.5 g/dl (14.0-18.0); LYMPHOCYTES # 0.9 10^3/ul (0.8-2.9); LYMPHOCYTES % 3.5 % (15.0-51.0); MEAN CORPUSCULAR HEMOGLOBIN 37.7 pg (29.0-33.0); MEAN CORPUSCULAR HGB CONC 33.5 g/dl (32.0-37.0); MEAN CORPUSCULAR VOLUME 112.5 fl (82.0-101.0); MONOCYTE # 3.1 10^3/ul (0.3-0.9); MONOCYTES % 12.7 % (0.0-11.0); NEUTROPHIL # 19.1 10^3/ul (1.6-7.5); NEUTROPHILS % 79.2 % (39.0-77.0); NUCLEATED RED BLOOD CELLS% 0.1 /100WBC (0.0-0.0); PLATELET COUNT 44 10^3/UL (140-415); POSITIVE DIFF @See below; RED BLOOD COUNT 3.05 10^6/ul (4.70-6.10); RED CELL DISTRIBUTION WIDTH 14.8 % (11.5-14.5)
[2018-02-16 05:04] LABS: WHITE BLOOD COUNT 24.1 10^3/ul (4.8-10.8)
[2018-02-16 05:29] LABS: MAGNESIUM 2.8 mg/dl (1.7-2.5)
[2018-02-16 05:29] LABS: PHOSPHORUS 4.8 mg/dl (2.5-4.9)
[2018-02-16 05:33] LABS: ALANINE AMINOTRANSFERASE 50 IU/L (13-69); ALBUMIN 2.4 g/dl (3.3-4.9); ALBUMIN/GLOBULIN RATIO 0.55; ALKALINE PHOSPHATASE 241 IU/L (42-121); ANION GAP 9 (5-13); ASPARTATE AMINO TRANSFERASE 112 IU/L (15-46); BILIRUBIN,INDIRECT 3.1 mg/dl (0-1.1); BILIRUBIN,TOTAL 17.6 mg/dl (0.2-1.3); BLOOD UREA NITROGEN 45 mg/dl (7-20); CALCIUM 9.2 mg/dl (8.4-10.2); CARBON DIOXIDE 23 mmol/L (21-31); CHLORIDE 111 mmol/L (97-110); CREATININE 1.17 mg/dl (0.61-1.24); Estimated GFR > 60 mL/min (>60); GLUCOSE 127 mg/dl (70-220); POTASSIUM 3.3 mmol/L (3.5-5.1); SODIUM 143 mmol/L (135-144); TOTAL PROTEIN 6.7 g/dl (6.1-8.1)
[2018-02-16] MEDS: metroNIDAZOLE 500 MG/NS (PMX) 100 ML IVPB ×3 (05:47→22:14)
[2018-02-16] MEDS: FAMOTIDINE 20 MG INJ IV ×2 (09:21→20:21)
[2018-02-16] MEDS: MULTIVITAMINS THERAPEUTIC TAB PO (09:21)
[2018-02-16] MEDS: METHYLPREDNISOLONE 40 MG INJ IV (09:21)
[2018-02-16] MEDS: RIFAXIMIN 550 MG TAB PO ×2 (09:21→23:05)
[2018-02-16] MEDS: POTASSIUM CHLORIDE 20 MEQ POWDER FOR ORAL SOLN GTB (09:22)
[2018-02-16 10:23] LABS: AADO2 Arterial 68.3 mmHg (7.0-24.0); Allen Test ACCEPTAB; Arterial Base Excess -2.5 mmol/L (-3.0-3); Arterial COHb 1.4 % (0.0-3.0); Arterial Fraction of Oxyhgb 96.3 % (93.0-99.0); Arterial HCO3 21.2 mmol/L (22.0-26.0); Arterial MetHb 0.3 % (0.0-1.5); Arterial Total Hemglobin 12.7 g/dl (12.0-18.0); Arterial pCO2 33.3 mmhg (35-45); MODE VENT - AC; Site Left Radial
[2018-02-16] MEDS: LEVOFLOXACIN 500MG/D5W (PMX) 100 ML IVPB (11:15)
[2018-02-16 14:44] LABS: AMMONIA 72 umol/l (9-30)
[2018-02-16] MEDS: ACETAMINOPHEN 650MG/20.3ML CUP NGT (20:21)
[2018-02-17] MEDS: LACTULOSE 30ML CUP NGT ×6 (00:52→21:43)
[2018-02-17 05:08] LABS: AADO2 Arterial 67.2 mmHg (7.0-24.0); Allen Test ACCEPTAB; Arterial Base Excess -1.7 mmol/L (-3.0-3); Arterial Blood Gas Oxygen Sat 97.5 mmHG (95.0-98.0); Arterial COHb 1.4 % (0.0-3.0); Arterial Fraction of Oxyhgb 95.8 % (93.0-99.0); Arterial HCO3 22.6 mmol/L (22.0-26.0); Arterial MetHb 0.3 % (0.0-1.5); Arterial pCO2 36.9 mmhg (35-45); MODE VENT - AC; Site Left Radial
[2018-02-17 05:27] LABS: LACTIC ACID 1.9 mmol/L (0.5-2.0)
[2018-02-17 05:36] LABS: PARTIAL THROMBOPLASTIN TIME 45.1 Sec (23.0-35.0); PROTIME 38.7 Sec (11.9-14.9)
[2018-02-17 05:42] LABS: ALANINE AMINOTRANSFERASE 61 IU/L (13-69); ALBUMIN 2.3 g/dl (3.3-4.9); ALKALINE PHOSPHATASE 209 IU/L (42-121); ANION GAP 5 (5-13); ASPARTATE AMINO TRANSFERASE 140 IU/L (15-46); BILIRUBIN,INDIRECT 3.3 mg/dl (0-1.1); BILIRUBIN,TOTAL 20.2 mg/dl (0.2-1.3); BLOOD UREA NITROGEN 52 mg/dl (7-20); CALCIUM 9.6 mg/dl (8.4-10.2); CARBON DIOXIDE 23 mmol/L (21-31); CHLORIDE 119 mmol/L (97-110); CREATININE 1.29 mg/dl (0.61-1.24); Estimated GFR > 60 mL/min (>60); GLUCOSE 127 mg/dl (70-220); POTASSIUM 3.5 mmol/L (3.5-5.1); SODIUM 147 mmol/L (135-144); TOTAL PROTEIN 6.9 g/dl (6.1-8.1)
[2018-02-17] MEDS: metroNIDAZOLE 500 MG/NS (PMX) 100 ML IVPB ×3 (05:42→21:44)
[2018-02-17] MEDS: FAMOTIDINE 20 MG INJ IV ×2 (09:37→21:44)
[2018-02-17] MEDS: MULTIVITAMINS THERAPEUTIC TAB PO (09:39)
[2018-02-17] MEDS: METHYLPREDNISOLONE 40 MG INJ IV (09:40)
[2018-02-17] MEDS: RIFAXIMIN 550 MG TAB PO ×2 (09:40→21:44)
[2018-02-17] MEDS: LEVOFLOXACIN 500MG/D5W (PMX) 100 ML IVPB (11:12)
[2018-02-17] MEDS: ALBUMIN HUMAN 25% 50 ML IV ×2 (11:37→18:08)
[2018-02-17] MEDS: MIDODRINE 5 MG TAB PO ×2 (11:47→17:47)
[2018-02-17 14:30] LABS: SODIUM,URINE RANDOM < 13 mmol/L (30-90)
[2018-02-18] MEDS: LACTULOSE 30ML CUP NGT ×6 (00:13→21:18)
[2018-02-18] MEDS: ACETAMINOPHEN 650MG/20.3ML CUP NGT ×3 (00:14→09:01)
[2018-02-18] MEDS: ALBUMIN HUMAN 25% 50 ML IV (03:29)
[2018-02-18] MEDS: metroNIDAZOLE 500 MG/NS (PMX) 100 ML IVPB (05:00)
[2018-02-18 05:47] LABS: ALANINE AMINOTRANSFERASE 58 IU/L (13-69); ALBUMIN 2.5 g/dl (3.3-4.9); ALBUMIN/GLOBULIN RATIO 0.65; ALKALINE PHOSPHATASE 162 IU/L (42-121); ANION GAP 7 (5-13); ASPARTATE AMINO TRANSFERASE 128 IU/L (15-46); BILIRUBIN,INDIRECT 3.8 mg/dl (0-1.1); BILIRUBIN,TOTAL 24.8 mg/dl (0.2-1.3); BLOOD UREA NITROGEN 59 mg/dl (7-20); CARBON DIOXIDE 26 mmol/L (21-31); CHLORIDE 119 mmol/L (97-110); CREATININE 1.58 mg/dl (0.61-1.24); Estimated GFR 48 mL/min (>60); GLUCOSE 133 mg/dl (70-220); POTASSIUM 3.4 mmol/L (3.5-5.1); SODIUM 152 mmol/L (135-144); TOTAL PROTEIN 6.3 g/dl (6.1-8.1)
[2018-02-18] MEDS: MIDODRINE 5 MG TAB PO ×3 (08:10→16:32)
[2018-02-18] MEDS: MULTIVITAMINS THERAPEUTIC TAB PO (08:10)
[2018-02-18] MEDS: RIFAXIMIN 550 MG TAB PO ×2 (08:11→21:18)
[2018-02-18] MEDS: FAMOTIDINE 20 MG INJ IV (08:12)
[2018-02-18] MEDS: METHYLPREDNISOLONE 40 MG INJ IV (08:13)
[2018-02-18] MEDS: DEXTROSE 5% 1,000 ML IV ×2 (08:35→21:19)
[2018-02-18] MEDS: ALBUMIN HUMAN 25% 100 ML IV ×3 (08:39→23:30)
[2018-02-18] MEDS: POTASSIUM CHLORIDE 20 MEQ POWDER FOR ORAL SOLN NGT (08:41)
[2018-02-18] MEDS ORDERED: VANCOMYCIN IV PER PHARMACY XX (11:00)
[2018-02-18] MEDS: PIPER-TAZO 3.375 GM IV (PMX) 100 ML IVPB ×3 (11:41→23:30)
[2018-02-18 11:44] LABS: ADD UMIC YES; UR ASCORBIC ACID NEGATIVE (NEGATIVE); UR BACTERIA FEW /HPF (NONE SEEN); UR BILIRUBIN (Dip) 2+ mg/dL (NEGATIVE); UR BLOOD (Dip) 2+ mg/dL (NEGATIVE); UR CLARITY CLEAR (CLEAR); UR COLOR AMBER (YELLOW); UR GLUCOSE (Dip) NEGATIVE (NEGATIVE); UR KETONES (Dip) NEGATIVE (NEGATIVE); UR LEUKOCYTE ESTERASE (Dip) NEGATIVE Leu/ul (NEGATIVE); UR MUCUS FEW /HPF (NONE SEEN); UR NITRITE (Dip) NEGATIVE (NEGATIVE); UR RBC 13 /HPF (0-5); UR SPECIFIC GRAVITY (Dip) 1.016 (1.003-1.030); UR TOTAL PROTEIN (Dip) NEGATIVE (NEGATIVE); UR UROBILINOGEN (Dip) 2+ mg/dL (NEGATIVE); UR WBC 8 /HPF (0-5)
[2018-02-18 12:00] LABS: CREATININE,URINE RANDOM 53.79 mg/dl (20-370)
[2018-02-18 12:04] LABS: SODIUM,URINE RANDOM < 13 mmol/L (30-90)
[2018-02-18 13:28] LABS: OSMOLALITY,URINE 479 mOsm/kg (250-1200)
[2018-02-18] MEDS: VANCOMYCIN 2 GM in SOD CHLORIDE 0.9% 500 ML IVPB (14:12)
[2018-02-18] MEDS: FAMOTIDINE 20 MG TAB NGT (21:18)
[2018-02-19] MEDS: LACTULOSE 30ML CUP NGT ×6 (01:09→20:57)
[2018-02-19] MEDS: VANCOMYCIN 1 GM 250 ML IVPB ×2 (01:09→12:48)
[2018-02-19 05:31] LABS: ALANINE AMINOTRANSFERASE 55 IU/L (13-69); ALBUMIN 2.7 g/dl (3.3-4.9); ALBUMIN/GLOBULIN RATIO 0.67; ALKALINE PHOSPHATASE 120 IU/L (42-121); ANION GAP 6 (5-13); ASPARTATE AMINO TRANSFERASE 111 IU/L (15-46); BILIRUBIN,INDIRECT 5.3 mg/dl (0-1.1); BLOOD UREA NITROGEN 52 mg/dl (7-20); CALCIUM 10.1 mg/dl (8.4-10.2); CARBON DIOXIDE 25 mmol/L (21-31); CHLORIDE 124 mmol/L (97-110); CREATININE 1.23 mg/dl (0.61-1.24); Estimated GFR > 60 mL/min (>60); GLUCOSE 156 mg/dl (70-220); POTASSIUM 3.3 mmol/L (3.5-5.1); SODIUM 155 mmol/L (135-144); TOTAL PROTEIN 6.7 g/dl (6.1-8.1)
[2018-02-19] MEDS: PIPER-TAZO 3.375 GM IV (PMX) 100 ML IVPB ×4 (05:31→23:49)
[2018-02-19 05:53] LABS: BILIRUBIN,TOTAL 31.7 mg/dl (0.2-1.3)
[2018-02-19] MEDS: DESMOPRESSIN 4 MCG INJ IV (08:00)
[2018-02-19] MEDS: RIFAXIMIN 550 MG TAB PO ×2 (08:58→20:57)
[2018-02-19] MEDS: FAMOTIDINE 20 MG TAB NGT ×2 (08:58→20:57)
[2018-02-19] MEDS: POTASSIUM CHLORIDE 20 MEQ POWDER FOR ORAL SOLN NGT (08:58)
[2018-02-19] MEDS: MULTIVITAMINS THERAPEUTIC TAB PO (08:58)
[2018-02-19] MEDS: MIDODRINE 5 MG TAB PO ×3 (08:58→16:29)
[2018-02-19] MEDS: METHYLPREDNISOLONE 40 MG INJ IV (08:59)
[2018-02-19] MEDS: ALBUMIN HUMAN 25% 100 ML IV ×3 (09:00→23:50)
[2018-02-19] MEDS ORDERED: DESMOPRESSIN 4 MCG INJ SC (10:30)
[2018-02-19] MEDS: DEXTROSE 5% 1,000 ML IV ×2 (12:08→23:50)
[2018-02-19 13:41] LABS: ANION GAP 9 (5-13); BLOOD UREA NITROGEN 52 mg/dl (7-20); CALCIUM 10.1 mg/dl (8.4-10.2); CARBON DIOXIDE 25 mmol/L (21-31); CHLORIDE 122 mmol/L (97-110); CREATININE 1.11 mg/dl (0.61-1.24); Estimated GFR > 60 mL/min (>60); GLUCOSE 155 mg/dl (70-220); POTASSIUM 3.7 mmol/L (3.5-5.1); SODIUM 156 mmol/L (135-144)
[2018-02-19 15:22] LABS: CREATININE, RANDOM URINE 59 mg/dL (20-320); MICROALBUMIN 1.1 mg/dL; MICROALBUMIN/CREATININE RATIO 19 (<30)
[2018-02-19] MEDS: DESMOPRESSIN 4 MCG INJ SC (20:57)
[2018-02-20 01:16] LABS: VANCOMYCIN,TROUGH 15.4 ug/ml (10.0-20.0)
[2018-02-20] MEDS: VANCOMYCIN 1 GM 250 ML IVPB ×2 (01:26→13:28)
[2018-02-20] MEDS: LACTULOSE 30ML CUP NGT ×6 (01:26→20:42)
[2018-02-20 05:07] LABS: ADD MAN DIFF? NO
[2018-02-20 05:16] LABS: ABNORMAL IP MESSAGE 1; BASOPHILS % 0.1 % (0.0-2.0); EOSINOPHILS % 0.1 % (0.0-7.0); HEMOGLOBIN 7.8 g/dl (14.0-18.0); LYMPHOCYTES # 0.8 10^3/ul (0.8-2.9); LYMPHOCYTES % 5.6 % (15.0-51.0); MEAN CORPUSCULAR HEMOGLOBIN 38.6 pg (29.0-33.0); MEAN CORPUSCULAR HGB CONC 31.2 g/dl (32.0-37.0); MEAN CORPUSCULAR VOLUME 123.8 fl (82.0-101.0); MONOCYTE # 1.3 10^3/ul (0.3-0.9); MONOCYTES % 9.4 % (0.0-11.0); NEUTROPHIL # 11.5 10^3/ul (1.6-7.5); NEUTROPHILS % 83.8 % (39.0-77.0); NUCLEATED RED BLOOD CELLS% 0.1 /100WBC (0.0-0.0); PLATELET COUNT 34 10^3/UL (140-415); POSITIVE DIFF @See below; RED BLOOD COUNT 2.02 10^6/ul (4.70-6.10); RED CELL DISTRIBUTION WIDTH 15.4 % (11.5-14.5)
[2018-02-20 05:16] LABS: WHITE BLOOD COUNT 13.7 10^3/ul (4.8-10.8)
[2018-02-20] MEDS: PIPER-TAZO 3.375 GM IV (PMX) 100 ML IVPB ×3 (05:45→18:00)
[2018-02-20 06:05] LABS: ALANINE AMINOTRANSFERASE 52 IU/L (13-69); ALBUMIN 2.9 g/dl (3.3-4.9); ALKALINE PHOSPHATASE 117 IU/L (42-121); ANION GAP 8 (5-13); ASPARTATE AMINO TRANSFERASE 112 IU/L (15-46); BLOOD UREA NITROGEN 54 mg/dl (7-20); CARBON DIOXIDE 24 mmol/L (21-31); CHLORIDE 126 mmol/L (97-110); CREATININE 1.07 mg/dl (0.61-1.24); Estimated GFR > 60 mL/min (>60); GLUCOSE 158 mg/dl (70-220); POTASSIUM 3.6 mmol/L (3.5-5.1); SODIUM 158 mmol/L (135-144); TOTAL PROTEIN 6.5 g/dl (6.1-8.1)
[2018-02-20 06:12] LABS: BILIRUBIN,INDIRECT 6.3 mg/dl (0-1.1); BILIRUBIN,TOTAL 33.9 mg/dl (0.2-1.3)
[2018-02-20 08:44] LABS: OSMOLALITY,URINE 478 mOsm/kg (250-1200)
[2018-02-20] MEDS: METHYLPREDNISOLONE 40 MG INJ IV (09:06)
[2018-02-20] MEDS: RIFAXIMIN 550 MG TAB PO ×2 (09:06→20:42)
[2018-02-20] MEDS: MIDODRINE 5 MG TAB PO (09:06)
[2018-02-20] MEDS: MULTIVITAMINS THERAPEUTIC TAB PO (09:07)
[2018-02-20] MEDS: HYDROCHLOROTHIAZIDE 25 MG TAB NGT (09:07)
[2018-02-20] MEDS: FAMOTIDINE 20 MG TAB NGT ×2 (09:07→20:42)
[2018-02-20] MEDS: DESMOPRESSIN 4 MCG INJ SC (09:08)
[2018-02-20] MEDS: DEXTROSE 5% 1,000 ML IV ×3 (11:09→21:17)
[2018-02-20 14:01] LABS: ANION GAP 7 (5-13); BLOOD UREA NITROGEN 54 mg/dl (7-20); CALCIUM 9.9 mg/dl (8.4-10.2); CARBON DIOXIDE 26 mmol/L (21-31); CHLORIDE 123 mmol/L (97-110); CREATININE 1.06 mg/dl (0.61-1.24); Estimated GFR > 60 mL/min (>60); GLUCOSE 160 mg/dl (70-220); POTASSIUM 3.4 mmol/L (3.5-5.1); SODIUM 156 mmol/L (135-144)
[2018-02-20] MEDS: ACETAMINOPHEN 650MG/20.3ML CUP NGT (16:18)
[2018-02-20] MEDS: DESMOPRESSIN 4 MCG INJ IV (21:12)
[2018-02-21] MEDS: PIPER-TAZO 3.375 GM IV (PMX) 100 ML IVPB ×4 (00:41→17:40)
[2018-02-21] MEDS: LACTULOSE 30ML CUP NGT ×6 (01:20→21:30)
[2018-02-21] MEDS: VANCOMYCIN 1 GM 250 ML IVPB ×2 (01:20→13:02)
[2018-02-21 04:47] LABS: ADD MAN DIFF? NO
[2018-02-21 04:55] LABS: WHITE BLOOD COUNT 18.7 10^3/ul (4.8-10.8)
[2018-02-21 04:55] LABS: ABNORMAL IP MESSAGE 1; BASOPHILS % 0.1 % (0.0-2.0); EOSINOPHILS % 0.1 % (0.0-7.0); HEMATOCRIT 26.1 % (42.0-52.0); HEMOGLOBIN 8.1 g/dl (14.0-18.0); LYMPHOCYTES # 0.9 10^3/ul (0.8-2.9); LYMPHOCYTES % 4.6 % (15.0-51.0); MEAN CORPUSCULAR HEMOGLOBIN 38.4 pg (29.0-33.0); MEAN CORPUSCULAR VOLUME 123.7 fl (82.0-101.0); MEAN PLATELET VOLUME 13.6 fl (7.4-10.4); MONOCYTE # 1.8 10^3/ul (0.3-0.9); MONOCYTES % 9.8 % (0.0-11.0); NEUTROPHIL # 15.7 10^3/ul (1.6-7.5); NEUTROPHILS % 84.1 % (39.0-77.0); NUCLEATED RED BLOOD CELLS% 0.1 /100WBC (0.0-0.0); PLATELET COUNT 36 10^3/UL (140-415); POSITIVE DIFF @See below; RED BLOOD COUNT 2.11 10^6/ul (4.70-6.10); RED CELL DISTRIBUTION WIDTH 15.5 % (11.5-14.5)
[2018-02-21 05:24] LABS: ALANINE AMINOTRANSFERASE 72 IU/L (13-69); ALBUMIN 2.8 g/dl (3.3-4.9); ALBUMIN/GLOBULIN RATIO 0.73; ALKALINE PHOSPHATASE 142 IU/L (42-121); ANION GAP 7 (5-13); ASPARTATE AMINO TRANSFERASE 162 IU/L (15-46); BLOOD UREA NITROGEN 54 mg/dl (7-20); CALCIUM 9.5 mg/dl (8.4-10.2); CARBON DIOXIDE 26 mmol/L (21-31); CHLORIDE 123 mmol/L (97-110); CREATININE 1.13 mg/dl (0.61-1.24); Estimated GFR > 60 mL/min (>60); GLUCOSE 156 mg/dl (70-220); SODIUM 156 mmol/L (135-144); TOTAL PROTEIN 6.6 g/dl (6.1-8.1)
[2018-02-21 05:27] LABS: PHOSPHORUS 3.5 mg/dl (2.5-4.9)
[2018-02-21 05:27] LABS: MAGNESIUM 3.1 mg/dl (1.7-2.5)
[2018-02-21 05:40] LABS: BILIRUBIN,TOTAL 33.6 mg/dl (0.2-1.3)
[2018-02-21] MEDS: POTASSIUM CHLORIDE 100 ML IVPB ×3 (07:14→11:47)
[2018-02-21] MEDS: DEXTROSE 5% 1,000 ML IV ×3 (08:00→22:37)
[2018-02-21] MEDS: METHYLPREDNISOLONE 40 MG INJ IV (09:20)
[2018-02-21] MEDS: DESMOPRESSIN 4 MCG INJ IV ×2 (09:20→21:32)
[2018-02-21] MEDS: MULTIVITAMINS THERAPEUTIC TAB PO (09:20)
[2018-02-21] MEDS: HYDROCHLOROTHIAZIDE 25 MG TAB NGT ×2 (09:21→21:31)
[2018-02-21] MEDS: FAMOTIDINE 20 MG TAB NGT ×2 (09:21→21:31)
[2018-02-21] MEDS: RIFAXIMIN 550 MG TAB PO ×2 (09:21→21:31)
[2018-02-21 14:47] LABS: ANION GAP 8 (5-13); BLOOD UREA NITROGEN 48 mg/dl (7-20); CALCIUM 9.6 mg/dl (8.4-10.2); CARBON DIOXIDE 28 mmol/L (21-31); CHLORIDE 120 mmol/L (97-110); CREATININE 1.08 mg/dl (0.61-1.24); Estimated GFR > 60 mL/min (>60); GLUCOSE 173 mg/dl (70-220); POTASSIUM 3.6 mmol/L (3.5-5.1); SODIUM 156 mmol/L (135-144)
[2018-02-22] MEDS: PIPER-TAZO 3.375 GM IV (PMX) 100 ML IVPB ×5 (00:37→23:04)
[2018-02-22] MEDS: LACTULOSE 30ML CUP NGT ×6 (00:37→20:50)
[2018-02-22] MEDS: VANCOMYCIN 1 GM 250 ML IVPB ×2 (00:55→15:34)
[2018-02-22 05:16] LABS: ADD MAN DIFF? NO
[2018-02-22 05:17] LABS: WHITE BLOOD COUNT 22.9 10^3/ul (4.8-10.8)
[2018-02-22 05:17] LABS: ABNORMAL IP MESSAGE 1; BASOPHILS % 0.1 % (0.0-2.0); EOSINOPHILS % 0.1 % (0.0-7.0); HEMATOCRIT 26.4 % (42.0-52.0); HEMOGLOBIN 8.4 g/dl (14.0-18.0); LYMPHOCYTES % 4.4 % (15.0-51.0); MEAN CORPUSCULAR HEMOGLOBIN 39.1 pg (29.0-33.0); MEAN CORPUSCULAR HGB CONC 31.8 g/dl (32.0-37.0); MEAN CORPUSCULAR VOLUME 122.8 fl (82.0-101.0); MEAN PLATELET VOLUME 13.5 fl (7.4-10.4); MONOCYTE # 1.9 10^3/ul (0.3-0.9); MONOCYTES % 8.1 % (0.0-11.0); NEUTROPHIL # 19.4 10^3/ul (1.6-7.5); NEUTROPHILS % 84.9 % (39.0-77.0); PLATELET COUNT 37 10^3/UL (140-415); POSITIVE DIFF @See below; RED BLOOD COUNT 2.15 10^6/ul (4.70-6.10); RED CELL DISTRIBUTION WIDTH 15.3 % (11.5-14.5)
[2018-02-22] MEDS: DEXTROSE 5% 1,000 ML IV ×4 (05:45→23:04)
[2018-02-22 06:04] LABS: MAGNESIUM 2.9 mg/dl (1.7-2.5)
[2018-02-22 06:04] LABS: PHOSPHORUS 3.3 mg/dl (2.5-4.9)
[2018-02-22 06:10] LABS: ALANINE AMINOTRANSFERASE 89 IU/L (13-69); ALBUMIN 2.6 g/dl (3.3-4.9); ALBUMIN/GLOBULIN RATIO 0.72; ALKALINE PHOSPHATASE 146 IU/L (42-121); ANION GAP 9 (5-13); ASPARTATE AMINO TRANSFERASE 167 IU/L (15-46); BLOOD UREA NITROGEN 47 mg/dl (7-20); CALCIUM 9.4 mg/dl (8.4-10.2); CARBON DIOXIDE 27 mmol/L (21-31); CHLORIDE 116 mmol/L (97-110); CREATININE 0.92 mg/dl (0.61-1.24); Estimated GFR > 60 mL/min (>60); GLUCOSE 174 mg/dl (70-220); SODIUM 152 mmol/L (135-144); TOTAL PROTEIN 6.2 g/dl (6.1-8.1)
[2018-02-22 06:19] LABS: BILIRUBIN,INDIRECT 5.2 mg/dl (0-1.1); BILIRUBIN,TOTAL 32.6 mg/dl (0.2-1.3)
[2018-02-22 06:20] LABS: POTASSIUM 2.8 mmol/L (3.5-5.1)
[2018-02-22] MEDS: MULTIVITAMINS THERAPEUTIC TAB PO (09:48)
[2018-02-22] MEDS: FAMOTIDINE 20 MG TAB NGT ×2 (09:48→20:51)
[2018-02-22] MEDS: METHYLPREDNISOLONE 40 MG INJ IV (09:48)
[2018-02-22] MEDS: RIFAXIMIN 550 MG TAB PO ×2 (09:49→20:51)
[2018-02-22] MEDS: AMILORIDE 5 MG TAB PO (09:49)
[2018-02-22] MEDS: HYDROCHLOROTHIAZIDE 25 MG TAB NGT ×2 (09:49→20:51)
[2018-02-22] MEDS: POTASSIUM CHLORIDE 100 ML IVPB ×4 (09:50→17:44)
[2018-02-22] MEDS: DESMOPRESSIN 4 MCG INJ IV ×2 (09:50→20:55)
[2018-02-22 14:12] LABS: ANION GAP 6 (5-13); BLOOD UREA NITROGEN 47 mg/dl (7-20); CALCIUM 9.5 mg/dl (8.4-10.2); CARBON DIOXIDE 24 mmol/L (21-31); CHLORIDE 114 mmol/L (97-110); CREATININE 0.94 mg/dl (0.61-1.24); Estimated GFR > 60 mL/min (>60); GLUCOSE 170 mg/dl (70-220); POTASSIUM 3.2 mmol/L (3.5-5.1); SODIUM 144 mmol/L (135-144)
[2018-02-22 14:14] LABS: VANCOMYCIN,TROUGH 16.9 ug/ml (10.0-20.0)
[2018-02-23] MEDS: LACTULOSE 30ML CUP NGT ×6 (00:14→22:51)
[2018-02-23] MEDS: VANCOMYCIN 750 MG in SOD CHLORIDE 0.9% 150 ML IVPB ×2 (00:14→13:15)
[2018-02-23] MEDS: hydrALAzine 20 MG INJ IV (04:08)
[2018-02-23] MEDS: DEXTROSE 5% 1,000 ML IV ×3 (04:12→16:59)
[2018-02-23] MEDS: morphine 4 MG/ML VIAL IV (04:53)
[2018-02-23] MEDS: ALBUTEROL/IPRATROPIUM (NEB) 3 ML AMP HHN (05:06)
[2018-02-23] MEDS: PIPER-TAZO 3.375 GM IV (PMX) 100 ML IVPB ×3 (05:11→18:06)
[2018-02-23 05:51] LABS: WHITE BLOOD COUNT 28.7 10^3/ul (4.8-10.8)
[2018-02-23 05:51] LABS: ABNORMAL IP MESSAGE 1; HEMATOCRIT 28.4 % (42.0-52.0); HEMOGLOBIN 9.1 g/dl (14.0-18.0); MEAN CORPUSCULAR HEMOGLOBIN 38.9 pg (29.0-33.0); MEAN CORPUSCULAR VOLUME 121.4 fl (82.0-101.0); MEAN PLATELET VOLUME 14.4 fl (7.4-10.4); NUCLEATED RED BLOOD CELLS% 0.1 /100WBC (0.0-0.0); PLATELET COUNT 42 10^3/UL (140-415); POSITIVE DIFF @See below; RED BLOOD COUNT 2.34 10^6/ul (4.70-6.10); RED CELL DISTRIBUTION WIDTH 15.5 % (11.5-14.5)
[2018-02-23 06:08] LABS: ADD MAN DIFF? YES
[2018-02-23 06:15] LABS: AMMONIA 98 umol/l (9-30)
[2018-02-23 06:41] LABS: ANION GAP 12 (5-13); BLOOD UREA NITROGEN 47 mg/dl (7-20); CALCIUM 9.4 mg/dl (8.4-10.2); CARBON DIOXIDE 23 mmol/L (21-31); CHLORIDE 115 mmol/L (97-110); CREATININE 0.93 mg/dl (0.61-1.24); Estimated GFR > 60 mL/min (>60); GLUCOSE 181 mg/dl (70-220); MAGNESIUM 2.9 mg/dl (1.7-2.5); PHOSPHORUS 3.9 mg/dl (2.5-4.9); POTASSIUM 3.3 mmol/L (3.5-5.1); SODIUM 150 mmol/L (135-144)
[2018-02-23] MEDS: LORAZEPAM 2 MG INJ IV (06:41)
[2018-02-23] MEDS: LABETALOL HCL 20MG INJ IV (06:41)
[2018-02-23 07:19] LABS: ANISOCYTOSIS 3+ (0-0); BAND NEUTROPHILS #M 1.4 10^3/ul (0.0-0.6); BAND NEUTROPHILS % (M) 5 % (0-4); EOSINOPHILS % (M) 1 % (0-7); LYMPHOCYTES #M 0.5 10^3/ul (0.8-2.9); LYMPHOCYTES % (M) 2 % (15-51); METAMYELOCYTES #M 0.2 10^3/ul (0.0-0.0); METAMYELOCYTES %M 1 % (0-0); MONOCYTES % (M) 7 % (0-11); MYELOCYTES #M 0.2 10^3/ul (0.0-0.0); MYELOCYTES % (M) 1 % (0-0); PLATELET ESTIMATE SIG DECREASED; POIKILOCYTOSIS 1+ (0-0); POLYCHROMASIA 1+ (0-0); SEG NEUT #M 24.2 10^3/ul (1.6-7.5); SEGMENTED NEUTROPHILS (M) % 83 % (39-77); SMUDGE%M 8 % (0-0)
[2018-02-23] MEDS: POTASSIUM CHLORIDE 100 ML IVPB (09:38)
[2018-02-23] MEDS: METHYLPREDNISOLONE 40 MG INJ IV (09:39)
[2018-02-23] MEDS: HYDROCHLOROTHIAZIDE 25 MG TAB NGT ×2 (09:40→21:06)
[2018-02-23] MEDS: DESMOPRESSIN 4 MCG INJ IV ×2 (09:41→21:06)
[2018-02-23] MEDS: RIFAXIMIN 550 MG TAB PO ×2 (09:42→21:06)
[2018-02-23] MEDS: AMILORIDE 5 MG TAB PO (09:42)
[2018-02-23] MEDS: MULTIVITAMINS THERAPEUTIC TAB PO (09:42)
[2018-02-23] MEDS: FAMOTIDINE 20 MG TAB NGT ×2 (09:43→21:07)
[2018-02-24] MEDS: DEXTROSE 5% 1,000 ML IV ×2 (00:44→09:15)
[2018-02-24] MEDS: PIPER-TAZO 3.375 GM IV (PMX) 100 ML IVPB ×3 (00:50→12:12)
[2018-02-24] MEDS: VANCOMYCIN 750 MG in SOD CHLORIDE 0.9% 150 ML IVPB (02:05)
[2018-02-24] MEDS: LACTULOSE 30ML CUP NGT ×4 (02:05→12:12)
[2018-02-24] MEDS: RIFAXIMIN 550 MG TAB PO (09:00)
[2018-02-24] MEDS: DESMOPRESSIN 4 MCG INJ IV (09:16)
[2018-02-24] MEDS: AMILORIDE 5 MG TAB PO (09:16)
[2018-02-24] MEDS: HYDROCHLOROTHIAZIDE 25 MG TAB NGT (09:16)
[2018-02-24] MEDS: MULTIVITAMINS THERAPEUTIC TAB PO (09:17)
[2018-02-24] MEDS: FAMOTIDINE 20 MG TAB NGT (09:17)
[2018-02-24] MEDS: METHYLPREDNISOLONE 40 MG INJ IV (09:17)
[2018-02-24 11:39] LABS: ANION GAP 13 (5-13); BLOOD UREA NITROGEN 68 mg/dl (7-20); CALCIUM 8.9 mg/dl (8.4-10.2); CARBON DIOXIDE 20 mmol/L (21-31); CHLORIDE 109 mmol/L (97-110); CREATININE 1.33 mg/dl (0.61-1.24); Estimated GFR 58 mL/min (>60); GLUCOSE 166 mg/dl (70-220); POTASSIUM 3.1 mmol/L (3.5-5.1); SODIUM 142 mmol/L (135-144)
[2018-02-24 11:41] LABS: ALANINE AMINOTRANSFERASE 136 IU/L (13-69); ALBUMIN 2.7 g/dl (3.3-4.9); ALKALINE PHOSPHATASE 182 IU/L (42-121); ASPARTATE AMINO TRANSFERASE 218 IU/L (15-46); TOTAL PROTEIN 6.7 g/dl (6.1-8.1)
[2018-02-24 11:55] LABS: BILIRUBIN,INDIRECT 5.7 mg/dl (0-1.1); BILIRUBIN,TOTAL 36.4 mg/dl (0.2-1.3)
[2018-02-24] MEDS: morphine (DRIP) 100 MG/100 ML 100 ML IV (14:00)
[2018-02-24] MEDS: LORAZEPAM 2 MG INJ IV ×4 (14:57→18:17)
== END 2018-02-24 22:05 | disposition expired | DRG 432 ==
LOC: ICU 02-09 20:57 → E/R 15:14 → 2NE 19:38
PROC: 5A1955Z Respiratory Ventilation, Greater than 96 Consecutive Hours (ICD-10-PCS; principal; 2018-02-10)
PROC: 0BH17EZ Insertion of Endotracheal Airway into Trachea, Via Natural or Artificial Opening (ICD-10-PCS; 2018-02-10)
PROC: 02HV33Z Insertion of Infusion Device into Superior Vena Cava, Percutaneous Approach (ICD-10-PCS; 2018-02-10)
DX: K70.40 Alcoholic hepatic failure without coma (principal); K76.7 Hepatorenal syndrome; J96.02 Acute respiratory failure with hypercapnia; J96.01 Acute respiratory failure with hypoxia; J18.9 Pneumonia, unspecified organism; A41.9 Sepsis, unspecified organism; B15.9 Hepatitis A without hepatic coma; K76.6 Portal hypertension; E87.2 Acidosis; J81.1 Chronic pulmonary edema; N17.9 Acute kidney failure, unspecified; E87.1 Hypo-osmolality and hyponatremia; N39.0 Urinary tract infection, site not specified; K70.30 Alcoholic cirrhosis of liver without ascites; D69.59 Other secondary thrombocytopenia; R16.1 Splenomegaly, not elsewhere classified; E87.6 Hypokalemia; E80.6 Other disorders of bilirubin metabolism; I10 Essential (primary) hypertension; Z87.891 Personal history of nicotine dependence; D53.9 Nutritional anemia, unspecified; F10.920 Alcohol use, unspecified with intoxication, uncomplicated; M25.561 Pain in right knee; N28.9 Disorder of kidney and ureter, unspecified; K11.1 Hypertrophy of salivary gland; K70.10 Alcoholic hepatitis without ascites; R13.10 Dysphagia, unspecified
CPT/HCPCS: 31500; 36569; 36600; 70450; 70490; 71045; 73562; 74176; 74181; 76700; 76937; 80048; 80053; 80076; 80202; 81001; 81003; 82043; 82140; 82607; 82728; 82746; 82803; 82962; 83540; 83605; 83690; 83735; 83935; 84100; 84155; 84300; 84443; 85025; 85610; 85730; 86704; 86706; 86708; 86709; 86803; 87040; 87070; 87081; 87086; 87340; 92610; 93005; 94002; 94003; 94640; 94770; 95819; 99291-25